=== PATIENT | male | born 1940 | race Caucasian/White ===

== ENCOUNTER → 2016-05-04 | Outpatient (CLI) | payer OTHER ==
[~2016-05-04] MED LIST: ALBUTEROL HFA60 DOSE IN; AMBIEN5 MG PO; ASPIRIN ADULT L81 M1 PO; CARVEDILOL6.25 MG PO; FLAXSEED OIL1000 MG PO; SIMVASTATIN20 MG PO; WELCHOL625 MG PO
--- NOTE | 2016-05-04 15:51 | DIAGNOSTIC IMAGING REPORT ---
PROCEDURE: CT THORAX ABD PELVIS W/CONT INDICATION: RECTAL CA, follow-up TECHNIQUE: 125 ml of Isovue 300 injected intravenously and axial images were obtained of the entire thorax, abdomen, and pelvis with sagittal and coronal reformations. COMPARISON: CT chest/abdomen/pelvis 05/03/2015 FINDINGS: THORAX: Stable peripheral left upper lobe punctate nodule (series 3, image 18) and small peripheral left lower lobe opacity (series 3, image 45), chronic postinflammatory changes. There are no new pulmonary nodules. Stable right upper lobe scarring. Mild emphysema. No adenopathy or effusion. Median sternotomy with CABG and aortic valvuloplasty. Severe coronary atherosclerosis. Normal heart size but dilation of the left ventricle, unchanged. No suspicious osseous lesions ABDOMEN: Liver, gallbladder, pancreas, spleen, adrenal glands and kidneys are normal. Severe atherosclerosis of the aorta. Moderate stool. Small hiatal hernia. Stable 2 cm fat-containing hernia lateral to the rectus muscle. No free fluid or free air. PELVIS: Right lower quadrant anastomosis. Colorectal surgical changes with resolved fat-containing sinus tract dorsally. There is mild presacral soft tissues and which has diminished. There is stable rectal wall thickening. Normal prostate and bladder. No free fluid or adenopathy. Moderately severe degenerative changes of the spine. No suspicious osseous lesions IMPRESSION: 1. Colorectal surgical changes with mild thickening of the rectal wall, unchanged 2. Right lower quadrant bowel anastomosis 3. CABG and aortic valvuloplasty All CT scans at this facility use dose modulation, iterative reconstruction, and/or weight-based dosing when appropriate to reduce radiation dose to as low as reasonably achievable.
== END ==
LOC: CT SRH 11:47
DX: C20 Malignant neoplasm of rectum (principal)
CPT/HCPCS: 90074; 92560; 92630

== ENCOUNTER 2016-06-09 07:45 | Emergency (ER) | payer OTHER ==
--- NOTE | 2016-06-09 08:57 | DIAGNOSTIC IMAGING REPORT ---
PROCEDURE: XR CHEST 2 VIEW INDICATION: COUGH, SOB, HX SMOKING TECHNIQUE: PA and lateral view. COMPARISON: Chest x-ray 05/22/2015 FINDINGS: The right upper lobe scar. Median sternotomy and CABG. Heart size, mediastinum and pulmonary vessels are normal. Bony thorax is unremarkable. No significant interval change. IMPRESSION: 1. Right upper lobe scarring 2. CABG
--- NOTE | 2016-06-09 10:53 | DIAGNOSTIC IMAGING REPORT ---
PROCEDURE: CTA THORAX WITH CONTRAST INDICATION: SOB + D-DIMER TECHNIQUE: 85 ml of Isovue 370 was injected intravenously and axial images were obtained of the entire thorax with 3D sagittal and coronal MIP reconstructions. COMPARISON: Chest x-ray 06/09/2016, CT chest 05/04/[address] chest 05/03/2015. FINDINGS: Mild progression of right upper lobe scarring/atelectasis with nodular configuration peripherally and minor adjacent ground-glass appearance. Mild emphysematous changes. Focal left upper lobe calcified pleural plaque. Mild prominence of the pretracheal (7 mm short axis) and right hilar adenopathy. No effusion. No aortic dissection or aneurysm. Extensive coronary atherosclerosis. Normal heart size. Median sternotomy with CABG. Small hiatal hernia. Mild degenerative changes of the spine. IMPRESSION: 1. Mild progression of right upper lobe scarring/atelectasis with nodular appearance peripherally and mild surrounding ground-glass appearance suggestive of pneumonia. Developing peripheral mass is less likely given the short time frame since CT chest 05/04/2016. 2. No evidence of pulmonary emboli 3. Emphysema 4. CABG 5. Small hiatal hernia 6. Results discussed with Dr. Arizmendi
--- NOTE | 2016-06-09 11:18 | ED ORDER SUMMARY ---
..... Patient: SAL SAGASTUME OrderSheet [facility]ly [facility] VisitID: [id number] [address] [place] [address] 75y, M Registration Date/Time: 06/09/2016 ORDER SHEET Weight: 78.0 kg (stated) Allergies: Bee Venom, Lipitor GENERAL ORDERS: Chest 2V Urgent (07:34 06/09/2016 Parag Escobar) (Ack 8:09 KHoerner) (8:30 MWinterer R.N.) Cognos Developer (Continuous) (SOB) (07:34 06/09/2016 Parag Escobar) (7:39 MWinterer R.N.) Rapid Influenza Screen (Nasal Pharyngeal) (mucus) Urgent (07:35 06/09/2016 Parag Escobar) (Ack 8:09 KHoerner) (8:09 KHoerner) RSV Rapid Screen (Nasal Pharyngeal) (mucus) Urgent (07:35 06/09/2016 Parag Escobar) (8:02 KHoerner) CBC w Diff Urgent (07:35 06/09/2016 Parag Escobar) (Ack 7:59 KHoerner) (7:59 KHoerner) CMP Urgent (07:35 06/09/2016 Parag Escobar) (Ack 7:59 KHoerner) (7:59 KHoerner) UA-Culture if indicated Urgent (07:35 06/09/2016 Parag Escobar) (7:59 KHoerner) PT with INR Urgent (07:35 06/09/2016 Parag Escobar) (8:00 KHoerner) D-Dimer Urgent (07:35 06/09/2016 Parag Escobar) (Ack 8:00 KHoerner) (8:00 KHoerner) BNP Urgent (07:35 06/09/2016 Parag Escobar) (Ack 8:01 KHoerner) (8:01 KHoerner) Troponin-I Urgent (07:35 06/09/2016 Parag Escobar) (8:01 KHoerner) Pulse oximeter (07:35 06/09/2016 Parag Escobar) (7:39 MWinterer R.N.) Oxygen (2 L/min) (NC) (07:35 06/09/2016 Parag Escobar) (7:39 MWinterer R.N.) CTA Thorax w Cont (No) (GFR > 60) Urgent (08:54 06/09/2016 Parag Escobar) (Ack 8:56 KHoerner) (10:12 KHoerner) MEDICATION ORDERS: DuoNeb Neb Tx 1 unit dose (NOW) (07:35 06/09/2016 Parag Escobar) (8:08 Arron) Azithromycin PO 500 mg (NOW) (11:12 06/09/2016 Brea Escobar) (Ack 11:24 MWinterer R.N.) (11:35 MWinterer R.N.) IV FLUIDS: IV Saline Lock (07:06/09/2016 Parag Escobar) (7:40 MWinterer R.N.) Levaquin IV 500 mg/100mL (NOW) (11:11 06/09/2016 Brea Escobar) (Ack 11:24 MWinterer R.N.) (11:35 MWinterer R.N.) ORDER SHEET NOTES: [Electronically signed by Delfino Arizmendi Dr. (11:21 06/09/2016)] [Electronically signed by Arlin Ro R.N. (16:03 06/09/2016)] [Electronically locked/signed by Arlin Ro R.N. (16:03 06/09/2016)]
--- NOTE | 2016-06-09 11:18 | ED NURSING NOTES ---
Clinical Report - Nurses [facility] [address] [place] [address] 06/09/2016 7:47 Patient: SAL SAGASTUME TRIAGE Triage time 07:14. Acuity: LEVEL 3. Chief Complaint: SHORTNESS OF BREATH and DIFFICULTY BREATHING. Alert. JENNIFFER COMA SCORE: Jenniffer Coma Scale: 15- eyes open spontaneously (4); best verbal response- oriented x 4 (5); best motor response- obeys commands (6). --07:19 Marcia Fernandez R.N. 07:16 06/09/16. BP: 142/71. HR: 110. RR: 32. O2 saturation: 97%. Temp: 98.5 F. Pain level now 0/10. --07:19 Marcia Fernandez R.N. Weight: 78 kg stated. Height/Length: 72 inches Per Patient. BMI: 23.3. --07:16 Marcia Fernandez R.N. Medications Flax Seeds Oral 1000mg, BID. --07:26 Marcia Fernandez R.N. Aspirin Low Dose Oral (Tablet Chewable 81 mg) 1 tablet, BID. --07:26 Marcia Fernandez R.N. Simvastatin Oral (Tablet 20 mg) 1 tablet, daily. --07:27 Marcia Fernandez R.N. Welchol Oral (Tablet 625 mg) 1 tablet, BID. --07:27 Marcia Fernandez R.N. Carvedilol Oral (Tablet 6.25 mg) 1 tablet, BID. --07:27 Marcia Fernandez R.N. Medication/allergy information source: the patient. --07:19 Marcia Fernandez R.N. Allergies Bee Venom. Lipitor. --07:21 Marcia Fernandez R.N. History Arrived by private vehicle. Historian: patient. Accompanied by family. Primary physician (caty). ( shortness of breath started about 0300. Denies recent cough or fever but states he hadn't felt well the past few days.). This started just prior to arrival. Treatment BIOMEDICAL SPECIALIST: None. SOCIAL HX: Former smoker, end date 2010. Alcohol use; consumes three beers a day. FALL RISK ASSESSMENT: Fall risk assessment completed. No fall risk identified. NUTRITIONAL RISK ASSESSMENT: The nutritional risk assessment revealed no deficiencies. FUNCTIONAL ASSESSMENT: Functional assessment: no impairments noted. LEARNING NEEDS ASSESSMENT: The learning needs assessment revealed no barriers. SKIN INTEGRITY ASSESSMENT: Skin integrity risk assessment completed. No skin integrity risk identified. --07:19 Marcia Fernandez R.N. PROBLEMS: Colon and bladder CA. Heart Disease. Angina. Hypoxia. Valvular Heart Disease. Peripheral Vascular Disease. Gastroesophageal Reflux. Congestive Heart Failure. Anxiety Reaction. Hyperlipidemia. Atypical Chest Pain. Pneumonia. Coronary Artery Disease. Chest Pain. Unstable Angina. Hypercholesterolemia. Hypertension. --07:20 Marcia Fernandez R.N. ADDITIONAL SURGERIES: Bladder tumor removal. Bowel Surgery. Cardiac stent. Colostomy. Coronary Angioplasty. Coronary artery bypass grafts x 4. Tonsillectomy. --07:21 Marcia Fernandez R.N. Interventions ID band on patient. To treatment room. --07:19 Marcia Fernandez R.N. PHYSICAL ASSESSMENT 07:22 06/09/16. To room via wheelchair. GENERAL / NEURO / PSYCH: Alert. Oriented X 4. HEENT: Mucous membranes are pink. RESPIRATORY: Moderate respiratory distress. The patient can speak a few words at a time. Accessory muscle use. Chest nontender. CVS: Capillary refill less than 2 seconds. GI / : Abdomen soft and nontender. SKIN: Skin is warm and dry. Normal skin turgor. --07:22 Marcia Fernandez R.N. NURSING PROGRESS NOTES 07:22 06/09/16. The plan of care for this patient has been created. Oxygen administered by nasal cannula at 2 liters. Patient gowned. Head of bed elevated. Call light placed in reach. Bed placed in lowest position. Brakes of bed on. Patient ready for evaluation- chart flagged and ED physician notified. --07:22 Marcia Fernandez R.N. 07:25 06/09/2016 Site #1 started via IV in the left antecubital space with an 20g angiocath, with aseptic technique and good blood return; one attempt. Blood drawn: rainbow set. Labeled in the presence of the patient and sent to the lab. Saline lock flushed with 10 mL saline (by MAYANK Griffin). --07:30 Marcia Fernandez R.N. 07:58 06/09/2016 Duoneb (Ipratropium-Albuterol) Neb TX 1 unit dose given. Given by the respiratory therapist. --08:08 Naveed Tomas 08:18 06/09/16. Patient transported to radiology by stretcher with tech. --08:18 Arlin Ro R.N. 08:29 06/09/16. Patient returned from radiology by wheelchair with tech. --08:29 Arlin Ro R.N. 08:29 06/09/16. BP: 144/62. HR: 100. RR: 18. O2 saturation: 97%. Pain level now: 0/10. --08:30 Arlin Ro R.N. EKG time: (727). EKG was ordered, performed by a tech and shown to the ED physician. --09:03 Valerie Lopez, ER Tech1 10:38 06/09/16. BP: 106/77. HR: 89. RR: 16. O2 saturation: 95% on room air. --10:38 Arlin Ro R.N. 11:35 06/09/2016 Started 500 mg of Levaquin (Levofloxacin) IVPB in bag #1 100 mL; at 100 mL/hr over 1 hour(s) via site #1 via IV pump. Allergies verified and confirmed 5 rights. IV patency established. IV site checked: no pain, redness, or swelling. IV flushed thoroughly pre- and post-medication administration. --11:35 Arlin Ro R.N. 11:35 06/09/2016 Azithromycin PO 500 mg given. Allergies verified and confirmed 5 rights. --11:35 Arlin Ro R.N. 12:33 06/09/2016 Levaquin IVPB Discontinued: bag #1 infused. Total amount infused: 100 mL. IV patency established. IV site checked: no pain, redness, or swelling. IV flushed thoroughly. --12:33 Arlin Ro R.N. 12:33 06/09/16. BP: 126/53. HR: 87. RR: 19. O2 saturation: 98%. Temp: 98.9 F (oral). --12:36 Arlin Ro R.N. 12:50 06/09/2016 Site #1 removed upon discharge. Catheter intact. Manual pressure and bandage applied. --16:02 Arlin Ro R.N. DISPOSITION / DISCHARGE Departure time: 12:55 Jun 09 2016. Condition at departure: improved and stable. No learning barriers present. Discharge instructions provided and reviewed with the patient. Reviewed medication(s) side effects, precautions and dosing information. Prescription(s) given to the patient. Patient verbalized understanding. Written instructions provided in Armenian. The patient was discharged by the physician. He was discharged home and accompanied by family. He left the Emergency Department ambulatory and via private vehicle. Family member driving. --16:02 Arlin Ro R.N. 15:59 06/09/16. BP: 126/53. HR: 87. RR: 19. O2 saturation: 98% on room air. Temp: 98.9 F. Pain level now: 0/10. --16:02 Arlin Ro R.N. Locked/Released at 06/09/2016 16:03 by Arlin Ro R.N.
--- NOTE | 2016-06-09 11:18 | ED CLINICAL REPORT ---
Clinical Report - Physicians/Mid Levels [facility] [address] [place] [address] 06/09/2016 7:47 Patient: SAL SAGASTUME Arrived- By private vehicle. Historian- patient. HISTORY OF PRESENT ILLNESS Chief Complaint: DYSPNEA. This started past 3 days and is still present and worsening. It was gradual in onset and has been constant but is not gone now. The dyspnea is described as moderate and is worsened by exertion and is improved with oxygen. The patient has had a cough productive of sputum (does not know what color it is). No sputum production, fever, wheezing, chills or chest pain. No calf pain or foot swelling. He has had dizziness. Similar symptoms previously: None. Recent medical care: Not recently seen/assessed. REVIEW OF SYSTEMS The patient has not had weight loss. No muscle aches, nausea, vomiting, abdominal pain or diarrhea. No black stools, bloody stools or skin rash. All systems otherwise negative, except as recorded above. PAST HISTORY See nurses notes. Medications: Carvedilol Oral (Tablet 6.25 mg) 1 tablet, BID. Welchol Oral (Tablet 625 mg) 1 tablet, BID. Simvastatin Oral (Tablet 20 mg) 1 tablet, daily. Aspirin Low Dose Oral (Tablet Chewable 81 mg) 1 tablet, BID. Flax Seeds Oral 1000mg, BID. Allergies: Bee Venom. Lipitor. SOCIAL HISTORY Former smoker. Alcohol use. No drug use. No recent travel. Is a local resident. ADDITIONAL NOTES The nursing notes have been reviewed. PHYSICAL EXAM Vital Signs: 06/09/2016 07:16 BP: 142/71. HR: 110. RR: 32. O2 saturation: 97%. Temp: 98.5 F. Hypertensive. Oxygen saturation normal. Appearance: Alert. No acute distress. Eyes: Pupils equal, round and reactive to light. Eyes normal inspection. ENT: Ears normal. Nose normal. Pharynx normal. Uvula midline. Neck: Normal inspection. No jugular venous distention. Neck supple. CVS: Normal heart rate and rhythm. Heart sounds normal. Pulses normal. Respiratory: No respiratory distress. Breath sounds normal. No wheezes, stridor, rales or rhonchi. Abdomen: Soft and nontender. No organomegaly. Skin: Skin warm and dry. Normal skin color. No rash. Normal skin turgor. Extremities: Extremities exhibit normal ROM. No calf tenderness. No lower extremity edema. Neuro: Oriented X 3. No motor deficit. No sensory deficit. LABS, X-RAYS, AND EKG EKG: Wide-complex tachycardia. Sinus tachycardia. Normal P waves. Normal ALLAN. Normal QRS complex. LBBB. Normal axis. Normal ST and T waves, QT and QTc. EKG unchanged when compared with prior EKG. The study has been interpreted contemporaneously. The study has been independently viewed by me. The EKG appears to be a good tracing. Chest X-ray: (1. Right upper lobe scarring 2. CABG). Views: AP. The X-rays were independently viewed by me, interpreted by the radiologist and discussed with the radiologist. A comparison with prior films reveals that the findings are new. Chest CT: (1. Mild progression of right upper lobe scarring/atelectasis with nodular appearance peripherally and mild surrounding ground-glass appearance suggestive of pneumonia. Developing peripheral mass is less likely given the short time frame since CT chest 05/04/2016. 2. No evidence of pulmonary emboli 3. Emphysema 4. CABG 5. Small hiatal hernia). Chest CT performed with contrast. A comparison with prior studies reveals that the findings are new. The study was interpreted by the radiologist and discussed with the radiologist. Laboratory Tests: RSV Rapid Screen: (NAIMA: 06/09/2016 07:58) ( MsgRcvd 06/09/2016 08:30) Final results SPECIMEN DESCRIPTION: MUCUS Test Result Flag Units (Reference) RSV RAPID TEST DATE: 06/09/16 NEGATIVE SCREEN: NEGATIVE If Rapid RSV test is Negative but RSV is still suspected, a confirmatory RSV DFA can be requested. RAPID INFLUENZA SCREEN DATE: 06/09/16 INFLUENZA A: NEGATIVE SCREEN FOR INFLUENZA A INFLUENZA B: NEGATIVE SCREEN FOR INFLUENZA B . PROGRESS AND PROCEDURES Course of Care: the patient is a pleasant 75-year-old male with past medical history significant for coronary artery bypass graft, valvular heart replacement, and former smoker presenting for evaluation of shortness of breath. At this time differential diagnosis includes pneumonia congestive heart failure, acute myocardial infarction, and only embolism. Laboratory studies including EKG, chest x-ray have been ordered. Oxygen provided at bedside improvement symptoms. No wheezing on examination. Workup is pending at this time. Patient is agreeable to the treatment and plan. 06/09/2016 10:38 BP: 106/77. HR: 89. RR: 16. O2 saturation: 95%. Vital Signs: have been reviewed as normal. Disposition: Discharged home in good and improved condition. Condition: good. CLINICAL IMPRESSION Bacterial and lobar pneumonia. Vital signs recorded and reviewed; empiric antibiotics given in the ED and prescribed. No hypoxemia, respiratory failure or sepsis. INSTRUCTIONS Your Current Medications: CONTINUE TAKING THE FOLLOWING MEDICATIONS: Aspirin Low Dose Oral : Tablet Chewable 81 mg, 1 tablet BID. Carvedilol Oral : Tablet 6.25 mg, 1 tablet BID. Flax Seeds Oral : 1000mg BID. Simvastatin Oral : Tablet 20 mg, 1 tablet daily. Welchol Oral : Tablet 625 mg, 1 tablet BID. Prescription Medications: Levaquin 500 mg: take 1 tab orally every day for 4 days. No refills. Substitution is permissible. (Start on 06/10/16) Azithromycin 250 mg tablets: take 1 orally every day for 4 days. Total course 4 days. No refills. (Start on 06/10/16. Loading dose given in the ED) Follow-up: Follow up with your doctor in about two days. Call for an appointment. Blood pressure screening was not performed during this visit because the patient has an active diagnosis of hypertension. (Electronically signed by Delfino Arizmendi Dr. 06/09/2016 11:21)
--- NOTE | 2016-06-09 11:18 | ED ORDER SUMMARY ---
..... Patient: SAL SAGASTUME OrderSheet [facility] VisitID: [id number] [address] [place] [address] 75y, M Registration Date/Time: 06/09/2016 ORDER SHEET Weight: 78.0 kg (stated) Allergies: Bee Venom, Lipitor GENERAL ORDERS: Chest 2V Urgent (07:34 06/09/2016 Parag Escobar) (Ack 8:09 KHoerner) (8:30 MWinterer R.N.) Offset Lithographic Press Setter (Continuous) (SOB) (07:34 06/09/2016 Parag Escobar) (7:39 MWinterer R.N.) Rapid Influenza Screen (Nasal Pharyngeal) (mucus) Urgent (07:35 06/09/2016 Parag Escobar) (Ack 8:09 KHoerner) (8:09 KHoerner) RSV Rapid Screen (Nasal Pharyngeal) (mucus) Urgent (07:35 06/09/2016 Parag Escobar) (8:02 KHoerner) CBC w Diff Urgent (07:35 06/09/2016 Parag Escobar) (Ack 7:59 KHoerner) (7:59 KHoerner) CMP Urgent (07:35 06/09/2016 Parag Escobar) (Ack 7:59 KHoerner) (7:59 KHoerner) UA-Culture if indicated Urgent (07:35 06/09/2016 Parag Escobar) (7:59 KHoerner) PT with INR Urgent (07:35 06/09/2016 Parag Escobar) (8:00 KHoerner) D-Dimer Urgent (07:35 06/09/2016 Parag Escobar) (Ack 8:00 KHoerner) (8:00 KHoerner) BNP Urgent (07:35 06/09/2016 Parag Escobar) (Ack 8:01 KHoerner) (8:01 KHoerner) Troponin-I Urgent (07:35 06/09/2016 Parag Escobar) (8:01 KHoerner) Pulse oximeter (07:35 06/09/2016 Parag Escobar) (7:39 MWinterer R.N.) Oxygen (2 L/min) (NC) (07:35 06/09/2016 Parag Escobar) (7:39 MWinterer R.N.) CTA Thorax w Cont (No) (GFR > 60) Urgent (08:54 06/09/2016 Parag Escobar) (Ack 8:56 KHoerner) (10:12 KHoerner) MEDICATION ORDERS: DuoNeb Neb Tx 1 unit dose (NOW) (07:35 06/09/2016 Parag Escobar) (8:08 Arron) Azithromycin PO 500 mg (NOW) (11:12 06/09/2016 Brea Escobar) (Ack 11:24 MWinterer R.N.) (11:35 MWinterer R.N.) IV FLUIDS: IV Saline Lock (07:06/09/2016 Parag Escobar) (7:40 MWinterer R.N.) Levaquin IV 500 mg/100mL (NOW) (11:11 06/09/2016 Brea Escobar) (Ack 11:24 MWinterer R.N.) (11:35 MWinterer R.N.) ORDER SHEET NOTES: [Electronically signed by Delfino Arizmendi Dr. (11:21 06/09/2016)] [Electronically signed by Arlin Ro R.N. (16:03 06/09/2016)] [Electronically locked/signed by Arlin Ro R.N. (16:03 06/09/2016)]
--- NOTE | 2016-06-09 16:03 | ED MED RECONCILIATION SUMMARY ---
Patient: SAL SAGASTUME Medication Reconciliation Report [facility] VisitID: [id number] [address] [place] [address] 75y, M Registration Date/Time: 06/09/2016 Weight: 78.0 kg Height/Length: 72 in. BMI: 23.3 ALLERGIES: Bee Venom, Lipitor The patient's Home Medications are listed below: CONTINUE TAKING THE FOLLOWING MEDICATIONS: Aspirin Low Dose Oral (81 mg) 1 tablet, BID Carvedilol Oral (6.25 mg) 1 tablet, BID Flax Seeds Oral 1000mg, BID Simvastatin Oral (20 mg) 1 tablet, daily Welchol Oral (625 mg) 1 tablet, BID The source(s) of the original Home Medication information: patient The following Medications were given to the patient in the Emergency Department: Duoneb [Neb Tx] Neb TX 1 unit dose, administered: 06/09/2016 7:58:00 AM Levaquin [IVPB] IVPB bolus 0, then 500 mg 100 mL/hr, administered: 06/09/2016 11:35:00 AM Azithromycin [PO] PO 500 mg, administered: 06/09/2016 11:35:00 AM The following Medications were prescribed to the patient: Levaquin 500 mg: take 1 tab orally every day for 4 days. No refills. Substitution is permissible.(Start on 06/10/16) -- Delfino Arizmendi Dr. Azithromycin 250 mg tablets: take 1 orally every day for 4 days. Total course 4 days. No refills.(Start on 06/10/16. Loading dose given in the ED) -- Delfino Arizmendi Dr.
--- NOTE | 2016-06-09 16:03 | ED MAR SUMMARY ---
..... Medication Administration Record [facility] [address] [place] [address] Patient: SAL SAGASTUME Visit ID: [id number] 75y, M Weight: 78.0 kg Height/Length: 72 in BMI: 23.3 ALLERGIES: Bee Venom, Lipitor Given 07:58 06/09/2016 Naveed Tomas, Medication Administered: DUONEB [NEB TX] (IPRATROPIUM-ALBUTEROL), Dose: 1 unit dose Neb TX. Medication Ordered: DuoNeb Neb Tx 1 unit dose (NOW). Start 11:35 06/09/2016 Arlin Ro R.N., Stop 12:33 06/09/2016 Arlin Ro R.N. Medication Administered: LEVAQUIN [IVPB] (LEVOFLOXACIN), Dose: 500 mg IVPB over 1 hour(s), Rate: 100 mL/hr, Dispensed: 100 mL bag, Site: #1 left AC. Medication Ordered: Levaquin IV 500 mg/100mL (NOW). Given 11:35 06/09/2016 Arlin Ro RChanteNChante Medication Administered: AZITHROMYCIN [PO], Dose: 500 mg PO. Medication Ordered: Azithromycin PO 500 mg (NOW).
--- NOTE | 2016-06-09 16:03 | ED MAR SUMMARY ---
..... Medication Administration Record [facility] [address] [place] [address] Patient: SAL SAGASTUME Visit ID: [id number] 75y, M Weight: 78.0 kg Height/Length: 72 in BMI: 23.3 ALLERGIES: Bee Venom, Lipitor Given 07:58 06/09/2016 Naveed Tomas, Medication Administered: DUONEB [NEB TX] (IPRATROPIUM-ALBUTEROL), Dose: 1 unit dose Neb TX. Medication Ordered: DuoNeb Neb Tx 1 unit dose (NOW). Start 11:35 06/09/2016 Arlin Ro R.N., Stop 12:33 06/09/2016 Arlin Ro R.N. Medication Administered: LEVAQUIN [IVPB] (LEVOFLOXACIN), Dose: 500 mg IVPB over 1 hour(s), Rate: 100 mL/hr, Dispensed: 100 mL bag, Site: #1 left AC. Medication Ordered: Levaquin IV 500 mg/100mL (NOW). Given 11:35 06/09/2016 Arlin Ro RChanteNChante Medication Administered: AZITHROMYCIN [PO], Dose: 500 mg PO. Medication Ordered: Azithromycin PO 500 mg (NOW).
--- NOTE | 2016-06-09 16:03 | ED DISCHARGE INSTRUCTIONS ---
Patient: SAL SAGASTUME General Instructions [facility] VisitID: [id number] [place] [address] 75y, M Registration Date/Time: 06/09/2016 Bacterial and lobar pneumonia. Vital signs recorded and reviewed; empiric antibiotics given in the ED and prescribed. No hypoxemia, respiratory failure or sepsis. INSTRUCTIONS Your Current Medications: CONTINUE TAKING THE FOLLOWING MEDICATIONS: Aspirin Low Dose Oral : Tablet Chewable 81 mg, 1 tablet BID. Carvedilol Oral : Tablet 6.25 mg, 1 tablet BID. Flax Seeds Oral : 1000mg BID. Simvastatin Oral : Tablet 20 mg, 1 tablet daily. Welchol Oral : Tablet 625 mg, 1 tablet BID. Prescription Medications: Levaquin 500 mg: take 1 tab orally every day for 4 days. No refills. Substitution is permissible. (Start on 06/10/16) Azithromycin 250 mg tablets: take 1 orally every day for 4 days. Total course 4 days. No refills. (Start on 06/10/16. Loading dose given in the ED) Follow-up: Follow up with your doctor in about two days. Call for an appointment. Blood pressure screening was not performed during this visit because the patient has an active diagnosis of hypertension. ADDITIONAL INFORMATION Pneumonia (Adult) Pneumonia is an infection deep within the lung, in the small air sacs (alveoli). It may be due to a virus or bacteria and is usually treated with an antibiotic. Severe cases require treatment in the hospital. Milder cases can be treated at home. Symptoms usually start to improve during the first2 days of treatment. Home Care: Rest at home for the first 23 days or until you feel stronger. When resuming activity, dont let yourself become overly tired. Avoid exposure to cigarette smoke (yours or others). You may use acetaminophen (Tylenol) or ibuprofen (Motrin, Advil) to control fever or pain, unless another medicine was prescribed. [NOTE: If you have chronic liver or kidney disease or ever had a stomach ulcer or GI bleeding, talk with your doctor before using these medicines.] (Aspirin should never be used in anyone under 18 years of age who is ill with a fever. It may cause severe liver damage.) Your appetite may be poor so a light diet is fine. Keep well hydrated by drinking 68 glasses of fluids per day (water, sport drinks such as Gatorade, sodas without caffeine, juices, tea, soup, etc.). This will help loosen secretions in the lung, making it easier for you to cough up the phlegm (sputum). If you also have heart or kidney disease, check with your doctor before you drink extra amounts of fluids. Finish all antibiotic medicine prescribed, even if you are feeling better after a few days. Follow Up with your doctor in the next 23 days (or as advised) to be sure you are responding properly to the medicine. [NOTE: If you are age 65 or older, or if you have chronic lung disease (asthma, emphysema or COPD), we recommendthe pneumococcal vaccination and a yearlyinfluenzavaccination(flu-shot) every . Ask your doctor about this.] Get Prompt Medical Attention if any of the following occur: Not getting better within the first 48 hours of treatment Increasing shortness of breath or rapid breathing (over 25 breaths/minute) Coughing up blood or increasing chest pain with breathing Fever of 100.4F (38C) oral or higher, not better with fever medication Increasing weakness, dizziness or fainting Increasing thirst or dry mouth Sinus pain, headache or a stiff neck Chest pain not caused by coughing Levofloxacin Oral tablet What is this medicine? LEVOFLOXACIN (cleo orr) is a quinolone antibiotic. It is used to treat certain kinds of bacterial infections. It will not work for colds, flu, or other viral infections. How should I use this medicine? Take this medicine by mouth with a full glass of water. Follow the directions on the prescription label. This medicine can be taken with or without food. Take your medicine at regular intervals. Do not take your medicine more often than directed. Do not skip doses or stop your medicine early even if you feel better. Do not stop taking except on your doctor's advice. A special MedGuide will be given to you by the pharmacist with each prescription and refill. Be sure to read this information carefully each time. Talk to your prior authorization technician regarding the use of this medicine in children. While this drug may be prescribed for children as young as 6 months for selected conditions, precautions do apply. What side effects may I notice from receiving this medicine? Side effects that you should report to your doctor or health aged or disabled carer as soon as possible: -allergic reactions like skin rash or hives, swelling of the face, lips, or tongue -changes in vision -confusion, nightmares or hallucinations -difficulty breathing -irregular heartbeat, chest pain -joint, muscle or tendon pain -pain or difficulty passing urine -persistent headache with or without blurred vision -redness, blistering, peeling or loosening of the skin, including inside the mouth -seizures -unusual pain, numbness, tingling, or weakness -vaginal irritation, discharge Side effects that usually do not require medical attention (report to your doctor or health aged or disabled carer if they continue or are bothersome): -diarrhea -dry mouth -headache -stomach upset, nausea -trouble sleeping What may interact with this medicine? Do not take this medicine with any of the following medications: - arsenic trioxide - chloroquine - droperidol - medicines for irregular heart rhythm like amiodarone, disopyramide, dofetilide, flecainide, quinidine, procainamide, sotalol - some medicines for depression or mental problems like phenothiazines, pimozide, and ziprasidone This medicine may also interact with the following medications: - amoxapine -antacids - cisapride - dairy products - didanosine (ddI) buffered tablets or powder - haloperidol - multivitamins -NSAIDS, medicines for pain and inflammation, like ibuprofen or naproxen - retinoid products like tretinoin or isotretinoin - risperidone - some other antibiotics like clarithromycin or erythromycin - sucralfate - theophylline - warfarin What if I miss a dose? If you miss a dose, take it as soon as you remember. If it is almost time for your next dose, take only that dose. Do not take double or extra doses. Where should I keep my medicine? Keep out of the reach of children. Store at room temperature between 15 and 30 degrees C (59 and 86 degrees F). Keep in a tightly closed container. Throw away any unused medicine after the expiration date. What should I tell my health care provider before I take this medicine? They need to know if you have any of these conditions: cerebral disease irregular heartbeat kidney disease seizure disorder an unusual or allergic reaction to levofloxacin, other antibiotics or medicines, foods, dyes, or preservatives or trying to get breast-feeding What should I watch for while using this medicine? Tell your doctor or health aged or disabled carer if your symptoms do not improve or if they get worse. Drink several glasses of water a day and cut down on drinks that contain caffeine. You must not get dehydrated while taking this medicine. You may get drowsy or dizzy. Do not drive, use machinery, or do anything that needs mental alertness until you know how this medicine affects you. Do not sit or stand up quickly, especially if you are an older patient. This reduces the risk of dizzy or fainting spells. This medicine can make you more sensitive to the sun. Keep out of the sun. If you cannot avoid being in the sun, wear protective clothing and use a sunscreen. Do not use sun lamps or tanning beds/booths. Contact your doctor if you get a sunburn. If you are a diabetic monitor your blood glucose carefully. If you get an unusual reading stop taking this medicine and call your doctor right away. Do not treat diarrhea with [id number] products. Contact your doctor if you have diarrhea that lasts more than 2 days or if the diarrhea is severe and watery. Avoid antacids, calcium, iron, and zinc products for 2 hours before and 2 hours after taking a dose of this medicine. Azithromycin Oral tablet What is this medicine? AZITHROMYCIN (az ith brunakari CARR sin) is a macrolide antibiotic. It is used to treat or prevent certain kinds of bacterial infections. It will not work for colds, flu, or other viral infections. How should I use this medicine? Take this medicine by mouth with a full glass of water. Follow the directions on the prescription label. The tablets can be taken with food or on an empty stomach. If the medicine upsets your stomach, take it with food. Take your medicine at regular intervals. Do not take your medicine more often than directed. Take all of your medicine as directed even if you think your are better. Do not skip doses or stop your medicine early. Talk to your prior authorization technician regarding the use of this medicine in children. Special care may be needed. What side effects may I notice from receiving this medicine? Side effects that you should report to your doctor or health aged or disabled carer as soon as possible: allergic reactions like skin rash, itching or hives, swelling of the face, lips, or tongue confusion, nightmares or hallucinations dark urine difficulty breathing hearing loss irregular heartbeat or chest pain pain or difficulty passing urine redness, blistering, peeling or loosening of the skin, including inside the mouth white patches or sores in the mouth yellowing of the eyes or skin Side effects that usually do not require medical attention (report to your doctor or health aged or disabled carer if they continue or are bothersome): diarrhea dizziness, drowsiness headache stomach upset or vomiting tooth discoloration vaginal irritation What may interact with this medicine? Do not take this medicine with any of the following medications: lincomycin This medicine may also interact with the following medications: amiodarone antacids cyclosporine digoxin magnesium nelfinavir phenytoin warfarin What if I miss a dose? If you miss a dose, take it as soon as you can. If it is almost time for your next dose, take only that dose. Do not take double or extra doses. Where should I keep my medicine? Keep out of the reach of children. Store at room temperature between 15 and 30 degrees C (59 and 86 degrees F). Throw away any unused medicine after the expiration date. What should I tell my health care provider before I take this medicine? They need to know if you have any of these conditions: kidney disease liver disease irregular heartbeat or heart disease an unusual or allergic reaction to azithromycin, erythromycin, other macrolide antibiotics, foods, dyes, or preservatives or trying to get breast-feeding What should I watch for while using this medicine? Tell your doctor or health aged or disabled carer if your symptoms do not improve. Do not treat diarrhea with over the counter products. Contact your doctor if you have diarrhea that lasts more than 2 days or if it is severe and watery. This medicine can make you more sensitive to the sun. Keep out of the sun. If you cannot avoid being in the sun, wear protective clothing and use sunscreen. Do not use sun lamps or tanning beds/booths. You have been given the following additional information: Pneumonia (Adult) Levofloxacin Oral tablet Azithromycin Oral tablet (Electronically signed by Delfino Arizmendi Dr. 06/09/2016 11:21)
--- NOTE | 2016-06-09 16:03 | ED MED RECONCILIATION SUMMARY ---
Patient: SAL SAGASTUME Medication Reconciliation Report [facility] VisitID: [id number] [place] [address] 75y, M Registration Date/Time: 06/09/2016 Weight: 78.0 kg Height/Length: 72 in. BMI: 23.3 ALLERGIES: Bee Venom, Lipitor The patient's Home Medications are listed below: CONTINUE TAKING THE FOLLOWING MEDICATIONS: Aspirin Low Dose Oral (81 mg) 1 tablet, BID Carvedilol Oral (6.25 mg) 1 tablet, BID Flax Seeds Oral 1000mg, BID Simvastatin Oral (20 mg) 1 tablet, daily Welchol Oral (625 mg) 1 tablet, BID The source(s) of the original Home Medication information: patient The following Medications were given to the patient in the Emergency Department: Duoneb [Neb Tx] Neb TX 1 unit dose, administered: 06/09/2016 7:58:00 AM Levaquin [IVPB] IVPB bolus 0, then 500 mg 100 mL/hr, administered: 06/09/2016 11:35:00 AM Azithromycin [PO] PO 500 mg, administered: 06/09/2016 11:35:00 AM The following Medications were prescribed to the patient: Levaquin 500 mg: take 1 tab orally every day for 4 days. No refills. Substitution is permissible.(Start on 06/10/16) -- Delfino Arizmendi Dr. Azithromycin 250 mg tablets: take 1 orally every day for 4 days. Total course 4 days. No refills.(Start on 06/10/16. Loading dose given in the ED) -- Delfino Arizmendi Dr.
== END 2016-06-09 12:55 | disposition home or self-care (01) ==
LOC: ED SRH 07:48 → EDSTATUS 13:45 → OR SRH 06-11 11:45
DX: J18.1 Lobar pneumonia, unspecified organism (principal); Z87.891 Personal history of nicotine dependence; Z79.899 Other long term (current) drug therapy; Z79.82 Long term (current) use of aspirin; Z91.09 Other allergy status, other than to drugs and biological substances; Z88.8 Allergy status to other drugs, medicaments and biological substances
CPT/HCPCS: 90100; 90616; 91320; 91400; 91556; 91576; 94060; 95059

== ENCOUNTER 2016-07-01 12:23 | Outpatient (CLI) | payer OTHER ==
--- NOTE | 2016-07-01 13:42 | DIAGNOSTIC IMAGING REPORT ---
PROCEDURE: XR CHEST 2 VIEW INDICATION: PNEUMONIA,BACTERIAL NOS/COPD/HYPERTENSION TECHNIQUE: PA and lateral views. COMPARISON: Chest 06/09/2016 FINDINGS: The right upper lobe scar. Median sternotomy and CABG. Heart size, mediastinum and pulmonary vessels are normal. Bony thorax is unremarkable. No significant interval change. IMPRESSION: 1. Right upper lobe scarring 2. Lungs clear
== END 2016-07-01 23:00 ==
LOC: XR SRH 12:23
DX: J98.4 Other disorders of lung (principal); J44.9 Chronic obstructive pulmonary disease, unspecified; I10 Essential (primary) hypertension; Z95.1 Presence of aortocoronary bypass graft